=== PATIENT | female | born 1985 | race Caucasian/White ===

== ENCOUNTER 2023-07-14 07:01 | Emergency (ER) | payer OTHER ==
[2023-07-14 07:21] VITALS: BP 110/73; O2SAT 98
--- NOTE | 2023-07-14 08:20 | ED Physician Documentation ---
PD HPI HEENT - Stated complaint Stated Complaint: EYE PX - Chief complaint Chief Complaint: Heent - History obtained from History obtained from: Patient - Additional information Additional information: The patient comes to the emergency department chief complaint of irritation of her bilateral eyes. She states it seems to be worse on the right but both have been red and showing increased mucopurulent discharge. The patient has been wearing soft contact lenses, but has discarded these because of the infection. She has not had a URI lately or any other signs of illness. PD PAST MEDICAL HISTORY - Present Medications Home Medications: Ambulatory Orders Medication Instructions Recorded Confirmed Gentamicin 0.3% Ophth Drops 1 drops OPTH BID #5 ml 07/14/23 [Garamycin] - Allergies Allergies/Adverse Reactions: Allergies Allergy/AdvReac Type Severity Reaction Status Date / Time No Known Drug Allergies Allergy Verified 07/14/23 08:27 PD ED PE NORMAL - Vitals Vital signs reviewed: Yes - General General: Alert and oriented X 3, No acute distress - HEENT HEENT: Atraumatic, PERRL, EOMI, Ears normal, Moist mucous membranes, Pharynx benign, Other (Mild conjunctival injection of right eye. Mild mucopurulent discharge both eyes. Minimal conjunctival injection of left eye. No lid edema. Single punctate lesion on right cornea. No foreign body.) - Neck Neck: Supple, no meningeal sign, No JVD - Respiratory Respiratory: No respiratory distress - Derm Derm: Warm and dry - Extremities Extremities: No deformity - Neuro Neuro: Alert and oriented X 3 - Psych Psych: Normal mood, Normal affect Results - Vitals Vitals: Oxygen O2 Source Room air PD Medical Decision Making - ED course Complexity details: considered differential, d/w patient ED course: I discussed with the patient that she will need to not wear any contact lenses until her eyes are completely back to normal. I started her on antibiotic drops. Discussed her need to follow-up with her cable technician for reevaluation if not better after a week. We have discussed the usual indic ations for return. Departure - Departure Disposition: 01 Home, Self Care Clinical Impression: Conjunctivitis Qualifiers: Conjunctivitis type: acute Acute conjunctivitis type: unspecified Laterality: bilateral Qualified Code(s): H10.33 - Unspecified acute conjunctivitis, bilateral Superficial punctate keratitis Qualifiers: Laterality: right Qualified Code(s): H16.141 - Punctate keratitis, right eye Condition: Stable Instructions: ED Conjunctivitis Nonspecific Prescriptions: Gentamicin 0.3% Ophth Drops [Garamycin] 1 drops OPTH BID #5 ml Comments: A prescription for antibiotic eyedrops has been electronically transmitted to the [facility] here in [place], the closest pharmacy to our hospital. Please pick the drops of immediately and begin using them today. It is very important that you do not wear contact lenses at all until your Symptoms are completely resolved. In fact, you should not wear the contacts until your antibiotic course has been completed. Please schedule follow-up appointment w ith an cable technician, should your symptoms continue. Forms: PCP List Discharge Date/Time: 07/14/23 08:29
== END 2023-07-14 08:29 | disposition home or self-care (01) ==
LOC: ED 07:01
DX: H10.33 Unspecified acute conjunctivitis, bilateral (principal)
CPT/HCPCS: 99282; 99283